=== PATIENT | female | born 1985 | race Caucasian/White ===

== ENCOUNTER 2018-08-18 10:45 | Inpatient (IN) ==
[2018-08-18] MEDS ORDERED: LIDOCAINE HCL 50 ML VIAL PERI PRN (18:32)
[2018-08-18] MEDS ORDERED: RINGER'S SOLUTION,LACTATED 1,000 ML IV PRN (18:32)
[2018-08-18] MEDS ORDERED: RINGER'S SOLUTION,LACTATED 1,000 ML IV ONE (18:32)
[2018-08-18] MEDS ORDERED: ONDANSETRON 4 MG TAB.RAPDIS PO PRN (18:32)
[2018-08-18] MEDS ORDERED: NALBUPHINE HCL 10 MG/ML AMPUL IV PRN ×2 (18:32)
[2018-08-18] MEDS ORDERED: PENICILLIN G POTASSIUM 5 MILLIONUNT in DEXTROSE 5 % IN WATER 100 ML IV ONE ×2 (18:32)
[2018-08-18] MEDS ORDERED: OXYTOCIN/DEXTROSE 5%-WATER 30 UNITS/500 ML BAG IV ONE (18:32)
[2018-08-18] MEDS ORDERED: MISOPROSTOL 100 MCG TABLET VG PRN (18:32)
[2018-08-18 18:50] LABS: Hematocrit 37.8 % (37.0-47.0); Hemoglobin 12.3 gm/dL (12.5-16.0); Mean Corpuscular Hemoglobin 29.3 pg (27-31); Mean Corpuscular Hgb Conc 32.5 g/dl (32-36); Neutrophil # 6.1 K/mm3 (1.3-6.0); Neutrophil % 59.7 % (42-75.0); Platelet Count 246 K/mm3 (150-450); Red Cell Distribution Width 12.6 % (11.5-14.0); White Blood Count 10.2 K/mm3 (4.0-10.5)
[2018-08-18 19:04] LABS: Albumin * 2.4 gm/dl (3.4-5.0); Anion Gap 13.3 mmol/L (6.8-13.8); BUN/Creatinine Ratio 18.6 (9.0-21.6); Bilirubin, Total 0.8 mg/dL (0.0-1.1); Ca. Corrected For Albumin 10.2 mg/dL (8.4-10.2); Calcium * 9.2 mg/dL (7.9-10.9); Carbon Dioxide 26.3 mmol/L (24-32.6); Potassium 3.6 mmol/L (3.4-4.6); Total Protein 6.2 gm/dL (6.2-8.2)
[2018-08-18 19:28] LABS: Cocaine Ur Negative (NEGATIVE); Urine Barbiturate Negative (NEGATIVE); Urine Benzodiazepines Negative (NEGATIVE); Urine Opiates Negative (NEGATIVE); Urine PCP Negative (NEGATIVE); Urine THC Negative (NEGATIVE)
[2018-08-18] MEDS ORDERED: PENICILLIN G POTASSIUM 2.5 MILLIONUNT in DEXTROSE 5 % IN WATER 100 ML IV SCH ×2 (22:32)
[2018-08-19] MEDS ORDERED: NALOXONE HCL 1 MG/1 ML SYRG IV PRN (00:28)
[2018-08-19] MEDS ORDERED: ONDANSETRON HCL/PF 2 MG/ML VIAL IV PRN (00:28)
[2018-08-19] MEDS ORDERED: BUPIVACAINE HCL/0.9 % NACL/PF 250 ML EP PRN (00:28)
[2018-08-19] MEDS ORDERED: fentaNYL CITRATE/PF 50 MCG/ML AMPUL IT SCH (00:30)
[2018-08-19] MEDS ORDERED: LIDOCAINE HCL/EPINEPHRINE 20 ML VIAL ONE (00:55)
--- NOTE | 2018-08-19 00:56 | ANES ---
Anesthesia Pre Procedure Eval Vitals/Labs: Last Vital Signs Temp 37.4 C 08/18/18 18:34 Pulse 86 08/18/18 18:34 Resp 20 08/18/18 18:34 BP 131/86 08/18/18 18:34 Pulse Ox 98 08/18/18 18:34 HOME MEDICATIONS Cetirizine HCl [Zyrtec] 10 mg PO PRN PRN 03/04/16 [Last Taken 03/04/16] Vits96/Iron Fum/Folic [ S] 1 tab PO DAILY 03/04/16 [Last Taken 08/18/18] calcium carbonate 600 mg calcium (1,500 mg) tablet 600 mg PO DAILY tab 02/21/18 [Last Taken 08/18/18] Allergies/Adverse Reactions: Allergies Allergy/AdvReac Type Severity Reaction Status Date / Time ciprofloxacin [From Cipro] Allergy Verified 08/15/18 13:35 ciprofloxacin HCl Allergy Verified 08/15/18 13:35 [From Cipro] house dust Allergy rhinitis Verified 08/15/18 13:35 tree and shrub pollen Allergy Rhinitis Verified 08/15/18 13:35 - Planned Procedure Planned Procedure: MEDICAL INDUCTION Medication List Reviewed:: Yes Allergies Verified: Yes Medical History (Last Reviewed 08/19/18 @ 00:55 by Fred Powell CRNA) induced hypertension, antepartum Onset Date: ~2015 Seasonal allergic rhinitis [place] teeth extracted Onset Date: ~1998 Family History (Last Reviewed 08/19/18 @ 00:55 by Fred Powell CRNA) Mother Hypertension Hypothyroidism Father Hypertension Hypercholesteremia - Family Anesthesia History Family History:: no untoward family reactions to anesthesia, no familial bleeding tendencies, no family history of clotting disorders, no family history of premature - Airway/Neck/Teeth Within Normal Limits:: Yes Teeth Condition: intact Mallampatti Score: 2 Thyromental (T-M) distance: > 6 cm Mandibulo Hyoid distance: > 3 cm - Respiratory Respiratory Physical: lungs clear Sleep Apnea currently treated: No Sleep Apnea by current assessment: No - Cardiovascular Cardiac History: hypertension Tolerate Activity: Good Heart Sounds: S1 & S2 - Anesthesia Assessment and Plan ASA Class: PS, II, E Anesthesia Type Plan: Epidural - CSE for labor analgesia
[2018-08-19] MEDS ORDERED: fentaNYL CITRATE/PF 50 MCG/ML AMPUL IT ONE ×2 (01:00→01:56)
[2018-08-19] MEDS ORDERED: LIDOCAINE HCL/EPINEPHRINE 20 ML VIAL IJ ONE (01:00)
--- NOTE | 2018-08-19 01:11 | ANES ---
Post Anesthesia Discharge - Transfer of Care Transfer of Care handoff given to nurse: Yes - Discharge from PACU Discharge from PACU when meets criteria: Yes - More comfortable now
--- NOTE | 2018-08-19 01:13 | ANES ---
Anesthesia Procedure Note Procedure Note: ANESTHESIA PROCEDURE NOTE Date of Procedure: 08/19/2018 Time of procedure:49. Performed by: Fred Powell CRNA, MSN Lathe Scalper Operator: Gaurav Combs RN. Preprocedure diagnosis: Active labor, labor pain. Post procedure diagnosis: Same. Procedure:Epidural for labor analgesia L4 5. Indications: Labor pain. Findings: See below. Details of the procedure: The patient was placed on the side of the bed in sitting positionand prepped with DuraPrep then draped in a sterile fashion. Lidocaine 1% was infiltrated to the skin and subcutaneous tissues at the level of the and L4 5 interspace. An 18-gauge Touhy needle was used to approach the epidural space with loss of resistance technique. Once loss of resistance was achieved a 27-gauge spinal needle was passed through the epidural needle and CSF was contacted. After CSF returned, 20 mcg of fentanyl was injected in the spinal needle was removed the epidural catheter was then threaded approximately 4 cm in the epidural needle was removed. The catheter was taped in place and after careful aspiration 3 mL of 2% lidocaine with 1-200,000 epinephrine was injected without change in maternal heart rate or sensorium. . EBL: Minimal. Fluids: N/A. Specimen: N/A. Post procedure condition: The patient tolerated the procedure well with good relief. No complications were noted. Thank you for this consultation. Fred Powell CRNA, MSN
--- NOTE | 2018-08-19 01:33 | ANES ---
Post Anesthesia Assessment - Vital Signs Vitals: Last Vital Signs Temp 37.4 C 08/18/18 18:34 Pulse 86 08/18/18 18:34 Resp 20 08/18/18 18:34 BP 131/86 08/18/18 18:34 Pulse Ox 98 08/18/18 18:34 Airway Patency: Normal - Mental Status Level Of Consciousness: Awake, Alert, Appropriate - Pain Level Pain Score: 3 - ready to deliver - N/V Assessment Nausea/Vomiting Presence: None Dehydration:: No
[2018-08-19] MEDS ORDERED: IBUPROFEN 800 MG TABLET PO PRN (01:59)
[2018-08-19] MEDS ORDERED: HYDROCORTISONE 30 APPL TUBE TP PRN (01:59)
[2018-08-19] MEDS ORDERED: oxyCODONE HCL/ACETAMINOPHEN 1 TAB TABLET PO PRN ×2 (01:59)
[2018-08-19] MEDS ORDERED: BISACODYL 10 MG SUPP.RECT RC PRN (01:59)
[2018-08-19] MEDS ORDERED: SENNOSIDES 8.6 MG TABLET PO PRN (01:59)
[2018-08-19] MEDS ORDERED: GLYCERIN/WITCH HAZEL LEAF 40 APPL BOX TP PRN (01:59)
[2018-08-19] MEDS ORDERED: OXYTOCIN/DEXTROSE 5%-WATER 30 UNITS/500 ML BAG IV ONE (01:59)
[2018-08-19] MEDS ORDERED: BENZOCAINE/MENTHOL 81 SPRAY CAN TP PRN (01:59)
--- NOTE | 2018-08-19 02:01 | OR ---
Operative Report - Dictated Report Narrative: Called to respond to delivery for fast progressing mother Spontaneous vaginal delivery of vigorously crying viable female at 0145 on 08/19/2018 with Apgars 8 and 9, weighing 3943 g in AMIRA position with loose nuchal cord 2. Cord clamping delayed approximately 1 minute Placenta delivered complete, intact, with three vessel cord Estimated blood loss: less than 50 ml Anesthesia: epidural Lacerations: None History for MU Definition: * The number of deliveries resulting in a live the patient experienced prior to current hospitalization * The previous delivery of live twins or any live multiple gestation is consi dered one live event. *If primagravida or nulliparous is documented select zero for the number of previous live births. Live Events: 1
--- NOTE | 2018-08-19 08:56 | PN ---
Subjective - Date and Time Seen Date: 08/19/18 Time: 08:55 Subjective Narrative: Pt without complaints Objective Objective Narrative: See vital signs - Review of Systems Generalized/Overall Review: Reports: No Symptoms Reported Misc: All systems neg except as marked - Vitals Vitals: Last Vital Signs Temp 36.8 C 08/19/18 06:27 Pulse 75 08/19/18 06:27 Resp 18 08/19/18 06:27 BP 143/78 H 08/19/18 06:27 Pulse Ox 99 08/19/18 06:27 - Abnormal Lab Findings Abnormal Lab Findings: Abnormal Lab Results 08/18/18 08/18/18 Range/Units 18:44 18:44 Hgb 12.3 L (12.5-16.0) gm/dL Immature Gran % (Auto) 0.80 H (0.001-0.429) % Immature Gran # (Auto) 0.08 H (0.000-0.0310) K/mm3 Neutrophils # 6.1 H (1.3-6.0) K/mm3 Albumin 2.4 L (3.4-5.0) gm/dl - Exam Constitutional: Present: Alert, Oriented x3, Cooperative, No distress Abdomen: Present: soft, nontender, nondistended - fundus is firm Extremity: Present: non-tender, no calf tenderness Skin Exam: Present: normal color, warm/dry, no cyanosis Appearance: Present: appropriate appearance Eye contact: Present: cooperative Thoughts: Present: normal thought pattern Assessment/Plan Plan Narrative: PPD 0 s/p Doing well Discharge PPD 2
[2018-08-19] MEDS: DOCUSATE SODIUM 100 MG CAPSULE PO SCH (09:57)
--- NOTE | 2018-08-19 13:07 | HP ---
Chief Complaint - Chief Complaint Date of Service: 08/19/18 Time of Service: 13:01 Chief Complaint: Induction of labor History of Present Illness: The patient is a 33 yo @ 37w 1d who presented for an induction of labor due to pre-eclampsia without severe features. She was delivered overnight by Dr. Medina. She denies HOPPER, visual changes or abdominal pain. Her vaginal bleeding after delivery is normal. Medical History (Last Reviewed 08/19/18 @ 00:55 by Fred Powell CRNA) induced hypertension, antepartum Onset Date: ~2015 Seasonal allergic rhinitis [place] teeth extracted Onset Date: ~1998 Family History: Family History (Last Reviewed 08/19/18 @ 00:55 by Fred Powell CRNA) Mother Hypertension Hypothyroidism Father Hypertension Hypercholesteremia Social History: Preferred Language Iranian Do you have any judaism or Yes cultural preference? Smoking Status Never smoker (Last Updated 08/15/18 @ 14:38 by Jamia Barnes MD) No Social History Section defined Review Of Systems (GEN) - Review of Systems Generalized/Overall Review: Present: No Symptoms Reported Misc: All systems neg except as marked Immunizations: IMMUNIZATION HX Immunizations Up to Date Yes Allergies/Adverse Reactions: Allergies Allergy/AdvReac Type Severity Reaction Status Date / Time ciprofloxacin [From Cipro] Allergy Verified 08/15/18 13:35 ciprofloxacin HCl Allergy Verified 08/15/18 13:35 [From Cipro] house dust Allergy rhinitis Verified 08/15/18 13:35 tree and shrub pollen Allergy Rhinitis Verified 08/15/18 13:35 Home Medications: HOME MEDICATIONS Cetirizine HCl [Zyrtec] 10 mg PO PRN PRN 03/04/16 [Last Taken 03/04/16] Vits96/Iron Fum/Folic [ S] 1 tab PO DAILY 03/04/16 [Last Taken 08/18/18] calcium carbonate 600 mg calcium (1,500 mg) tablet 600 mg PO DAILY tab 02/21/18 [Last Taken 08/18/18] Exam - Exam Vital Signs: Vital Signs - Last Taken Temp 36.8 C 08/19/18 06:27 Pulse 75 08/19/18 06:27 Resp 18 08/19/18 06:27 BP 143/78 H 08/19/18 06:27 Pulse Ox 99 08/19/18 06:27 Constitutional: Present: Alert, Oriented x3, Cooperative, No distress Abdomen: Present: soft, nontender, nondistended Extremity: Present: non-tender, no calf tenderness Skin Exam: Present: normal color, warm/dry, no cyanosis Appearance: Present: appropriate appearance Eye contact: Present: cooperative Thoughts: Present: normal thought pattern Diagnostic Studies: Abnormal Lab Results 08/18/18 08/18/18 Range/Units 18:44 18:44 Hgb 12.3 L (12.5-16.0) gm/dL Immature Gran % (Auto) 0.80 H (0.001-0.429) % Immature Gran # (Auto) 0.08 H (0.000-0.0310) K/mm3 Neutrophils # 6.1 H (1.3-6.0) K/mm3 Albumin 2.4 L (3.4-5.0) gm/dl Laboratory Results WBC 10.2 K/mm3 (4.0-10.5) 08/18/18 18:44 RBC 4.20 M/mm3 (4.2-5.4) 08/18/18 18:44 Hgb 12.3 gm/dL (12.5-16.0) L 08/18/18 18:44 Hct 37.8 % (37.0-47.0) 08/18/18 18:44 MCV 90.0 fl (78-100) 08/18/18 18:44 MCH 29.3 pg (27-31) 08/18/18 18:44 MCHC 32.5 g/dl (32-36) 08/18/18 18:44 RDW 12.6 % (11.5-14.0) 08/18/18 18:44 Plt Count 246 K/mm3 (150-450) 08/18/18 18:44 MPV 10.0 fl (8-12.5) 08/18/18 18:44 Immature Gran % (Auto) 0.80 % (0.001-0.429) H 08/18/18 18:44 Immature Gran # (Auto) 0.08 K/mm3 (0.000-0.0310) H 08/18/18 18:44 Neutrophils % 59.7 % (42-75.0) 08/18/18 18:44 Lymphocytes % 29.1 % (20-51) 08/18/18 18:44 Monocytes % 8.7 % (0.0-9) 08/18/18 18:44 Eosinophils % 1.3 % (0.0-3.0) 08/18/18 18:44 Basophils % 0.4 % (0.0-1.0) 08/18/18 18:44 Nucleated RBC % 0.0 k/mm3 (0-1) 08/18/18 18:44 Neutrophils # 6.1 K/mm3 (1.3-6.0) H 08/18/18 18:44 Lymphocytes # 2.98 k/mm3 (1.5-3.5) 08/18/18 18:44 Monocytes # 0.9 k/mm3 (0.0-1.0) 08/18/18 18:44 Eosinophils # 0.1 k/mm3 (0.0-0.7) 08/18/18 18:44 Absolute Basophils 0.0 k/mm3 (0.0-0.1) 08/18/18 18:44 Sodium 137 mmol/L (132-142) 08/18/18 18:44 Plasma Sodium 137 mmol/L (130-142) 08/18/18 18:44 Potassium 3.6 mmol/L (3.4-4.6) 08/18/18 18:44 Chloride 101 mmol/L (97-106) 08/18/18 18:44 Carbon Dioxide 26.3 mmol/L (24-32.6) 08/18/18 18:44 Anion Gap 13.3 mmol/L (6.8-13.8) 08/18/18 18:44 BUN 11 mg/dL (3-23) 08/18/18 18:44 Creatinine 0.59 mg/dL (0.4-1.4) 08/18/18 18:44 Est GFR (Non-Af Amer) 124 mL/min (60-130) 08/18/18 18:44 BUN/Creatinine Ratio 18.6 (9.0-21.6) 08/18/18 18:44 Random Glucose 88 mg/dL (70-110) 08/18/18 18:44 Calcium 9.2 mg/dL (7.9-10.9) 08/18/18 18:44 Calcium Adj for Albumin 10.2 mg/dL (8.4-10.2) 08/18/18 18:44 Total Bilirubin 0.8 mg/dL (0.0-1.1) 08/18/18 18:44 AST 27 U/L (0-48) 08/18/18 18:44 ALT 23 U/L (19-67) 08/18/18 18:44 Alkaline Phosphatase 128 U/L (50-170) 08/18/18 18:44 Total Protein 6.2 gm/dL (6.2-8.2) 08/18/18 18:44 Albumin 2.4 gm/dl (3.4-5.0) L 08/18/18 18:44 Urine Opiates Screen Negative (NEGATIVE) 08/18/18 19:10 Barbiturate Screen Negative (NEGATIVE) 08/18/18 19:10 Ur Phencyclidine Scrn Negative (NEGATIVE) 08/18/18 19:10 Urine Amphetamine Negative (NEGATIVE) 08/18/18 19:10 U Benzodiazepines Scrn Negative (NEGATIVE) 08/18/18 19:10 Urine Cocaine Screen Negative (NEGATIVE) 08/18/18 19:10 Urine Marijuana (THC) Negative (NEGATIVE) 08/18/18 19:10 Pathology Specimen Spec to path 08/19/18 02:30 Blood Type O Positive 08/18/18 18:44 Antibody Screen Negative 08/18/18 18:44 Assessment/Plan - Narrative Narrative: 33 yo @ 37w 1d s/p by Dr. Medina Doing well Anticipate discharge to home PPD 2
--- NOTE | 2018-08-20 09:03 | PN ---
Subjective - Date and Time Seen Date: 08/20/18 Time: 09:02 Subjective Narrative: Pt without complaints Objective Objective Narrative: See vital signs - Review of Systems Generalized/Overall Review: Reports: No Symptoms Reported Misc: All systems neg except as marked - Vitals Vitals: Last Vital Signs Temp 36.4 C 08/20/18 07:17 Pulse 97 08/20/18 07:17 Resp 16 08/20/18 07:17 BP 135/87 08/20/18 07:17 Pulse Ox 99 08/20/18 07:17 - Exam Constitutional: Present: Alert, Oriented x3, Cooperative, No distress Abdomen: Present: soft, nontender, nondistended Extremity: Present: non-tender, no calf tenderness Skin Exam: Present: normal color, warm/dry, no cyanosis Appearance: Present: appropriate appearance Eye contact: Present: cooperative Thoughts: Present: normal thought pattern Assessment/Plan Plan Narrative: PPD1 s/p doing well discharge tomorrow
[2018-08-20] MEDS: DOCUSATE SODIUM 100 MG CAPSULE PO SCH ×3 (10:09→21:28)
--- NOTE | 2018-08-21 08:55 | PN ---
Subjective - Date and Time Seen Date: 08/21/18 Time: 08:54 Subjective Narrative: Pt without complaints Objective Objective Narrative: See vital signs - Review of Systems Generalized/Overall Review: Reports: No Symptoms Reported Misc: All systems neg except as marked - Vitals Vitals: Last Vital Signs Temp 36.4 C 08/21/18 07:55 Pulse 88 08/21/18 07:55 Resp 16 08/21/18 07:55 BP 120/95 H 08/21/18 07:55 Pulse Ox 97 08/21/18 07:55 - Exam Constitutional: Present: Alert, Oriented x3, Cooperative, No distress Abdomen: Present: soft, nontender, nondistended /Rectal: Present: External genitalia normal Extremity: Present: non-tender, no calf tenderness Skin Exam: Present: normal color, warm/dry, no cyanosis Appearance: Present: appropriate appearance Eye contact: Present: cooperative Thoughts: Present: normal thought pattern Assessment/Plan Plan Narrative: PPD 2 s/p Doing well Discharge home
[2018-08-21] MEDS: DOCUSATE SODIUM 100 MG CAPSULE PO SCH (09:03)
[2018-08-21 10:51] VITALS: BP 102/92
== END 2018-08-21 11:30 | disposition home or self-care (01) | DRG 806 ==
LOC: OB 18:26 → MS 08-20 04:14
PROVIDERS: ADMIT Obstetrics & Gynecology; ATTEND Obstetrics & Gynecology
CPT/HCPCS: 36415; 59025; 80053; 80307; 85025; 86850; 88307